=== PATIENT | female | born 1955 | race Caucasian/White ===

== ENCOUNTER → 2016-06-07 | Outpatient (CLI) | payer BC | LOC: LAB 17:19 | PROVIDERS: ATTEND Family Medicine | DX: R53.83 Other fatigue (principal) | CPT/HCPCS: 36415; 82728 ==

== ENCOUNTER → 2016-06-24 | Outpatient (CLI) | payer BC | LOC: LAB 11:11 | PROVIDERS: ATTEND Family Medicine | DX: R53.83 Other fatigue (principal); E21.3 Hyperparathyroidism, unspecified | CPT/HCPCS: 36415; 82306; 82310; 83970 ==

== ENCOUNTER → 2016-08-18 | Outpatient (CLI) | payer BC ==
[~2016-08-18] MED LIST: ATN25T PO; ENAL20TA74 PO; FURO-125 PO; KCL20TCR PO; NITR0.4T PO; OMEP-114 PO; PANT40TA2 PO
[2016-08-18 17:02] LABS: ALBUMIN 4.5 g/dL (3.4-5.0); ALKALINE PHOSPHATASE 84 U/L (38-126); BUN/CREATININE RATIO 24 (10-20); CALCULATED IONIZED CALCIUM 4.2 mg/dL (3.8-4.6); TOTAL PROTEIN 7.3 g/dL (6.4-8.5)
== END ==
LOC: LAB 16:29
PROVIDERS: ATTEND Family Medicine
DX: R53.83 Other fatigue (principal); E21.3 Hyperparathyroidism, unspecified
CPT/HCPCS: 36415; 80053; 82306; 82728; 83880; 84484

== ENCOUNTER → 2016-08-23 | Outpatient (CLI) | payer BC | LOC: LAB 14:45 | PROVIDERS: ATTEND Family Medicine | DX: R73.09 Other abnormal glucose (principal) | CPT/HCPCS: 36415; 82728; 83036 ==

== ENCOUNTER → 2016-09-01 | Outpatient (CLI) | payer BC ==
--- NOTE | 2016-09-02 07:59 | Diagnostic Imaging Report ---
Clinical indication: Patient with pain after twisting knee. Exam: X-ray of the left knee, 3 views. Comparison: None. Findings: There is no evidence of acute fracture or dislocation. There is no knee effusion. There is moderate lateral compartment narrowing and spurring seen. Impression: 1: There is no acute fracture or dislocation. 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 Dictated by: Dictated on workstation # [id number]
== END ==
LOC: RAD 18:58
PROVIDERS: ATTEND Family Medicine
DX: M25.562 Pain in left knee (principal); M17.12 Unilateral primary osteoarthritis, left knee
CPT/HCPCS: 73562

== ENCOUNTER → 2016-09-06 | Outpatient (CLI) | payer BC ==
--- NOTE | 2016-09-06 18:50 | Diagnostic Imaging Report ---
PROCEDURE: MRI left joint lower extremity without contrast. INDICATION: Left knee pain TECHNIQUE: Multiplanar and multisequence noncontrast MR imaging was performed of the left knee. COMPARISON: None FINDINGS: The anterior and posterior cruciate ligaments are intact. The medial meniscus is with mild myxoid changes but otherwise without evidence for underlying tear. The meniscus is somewhat thin. There is a rather complex multipart tear involving the posterior horn, anterior horn and body of the lateral meniscus. Some flipped fragments suspect. There is joint space narrowing both medially and laterally. There is diffuse thinning of the articular cartilage most pronounced laterally. No definitive subcortical cystic change. The collateral ligaments demonstrate strain pattern medially. There is the presence of a joint effusion. Quadriceps and patellar tendons are intact. A moderate degree of chondral malacia of the patella is present. There is a prominent Christianson's cyst in the medial popliteal fossa. IMPRESSION: 1. Rather complex multipart tear involving the lateral meniscus. Some fragments may be flipped. 2. Diffuse joint space narrowing both medially and laterally with some thinning and irregularity of the articular cartilage, slightly more pronounced laterally. 3. Chondromalacia of the patella. 4. Joint effusion. 5. Christianson's cyst. Dictated by: Dictated on workstation # [id number]
== END ==
LOC: RAD 17:05
PROVIDERS: ATTEND Family Medicine
DX: M25.562 Pain in left knee (principal); M22.42 Chondromalacia patellae, left knee; M25.462 Effusion, left knee; M71.22 Synovial cyst of popliteal space [Baker], left knee
CPT/HCPCS: 73721